=== PATIENT | female | born 1980 | race Caucasian/White ===

== ENCOUNTER 2023-09-29 14:56 | Inpatient (IN) | payer MEDICARE, MEDICAID ==
[~2023-09-29] VITALS: Ht 170.2 cm; Wt 187.3 kg
[~2023-09-29 14:56] MED LIST: ACET-2247 PO; ALBU2.5V39 NEB; AMOX1TAB15 PO; DIVA-111 PO; DOCU-385 PO; FAMO20 PO; HEPA500018 SQ; MAGN-169 PO
[2023-09-29] MEDS ORDERED: APIX2.5T PO (15:08)
[2023-09-29 18:11] LABS: BASOPHILS % (AUTO) 0.6 % (0.0-2.0); EOSINOPHILS % (AUTO) 0.3 % (1.0-6.0); HEMATOCRIT 39.3 % (36-46); HEMOGLOBIN 12.6 g/dL (12.0-16.0); LYMPHOCYTES # (AUTO) 2.3 K/uL (1.0-4.8); LYMPHOCYTES % (AUTO) 14.7 % (22.0-44.0); MEAN CORPUSCULAR HEMOGLOBIN 24.8 pg (26.0-34.0); MEAN CORPUSCULAR VOLUME 78 fL (80-100); MONOCYTES # (AUTO) 0.8 K/uL (0.1-1.0); NEUTROPHILS # (AUTO) 12.4 K/uL (1.8-7.7); NEUTROPHILS % (AUTO) 79.4 % (40.0-70.0); PLATELET COUNT (AUTO) 535 K/uL (150-450); RED BLOOD CELL COUNT(AUTO) 5.07 MIL/uL (4.00-5.20); WHITE BLOOD COUNT (AUTO) 15.6 K/uL (4.5-11.0)
[2023-09-29 18:22] LABS: ANION GAP 4 mmol/L (8-16); CALCIUM, TOTAL 9.6 mg/dL (8.8-10.5); CARBON DIOXIDE 30 mmol/L (22-29); CHLORIDE 100 mmol/L (98-107); CREATININE 0.66 mg/dL (0.60-1.30); GLOMERULAR FILTR. RATE CALC > 60 mL/min (>60); GLUCOSE,RANDOM 115 mg/dL (70-110); POTASSIUM 4.1 mmol/L (3.5-5.1); SODIUM SERUM 134 mmol/L (136-145); UREA NITROGEN, BLOOD 14 mg/dL (7-18)
[2023-09-29 18:34] LABS: ALCOHOL, BLOOD (SERUM) < 3 mg/dL (0-10)
[2023-09-29 18:38] LABS: RBC MORPHOLOGY COMMENT ABNORMAL RBC MORPH
[2023-09-29] MEDS ORDERED: ChlorproMAZINE HCL 100 MG TABLET PO PRN (18:45)
[2023-09-29] MEDS ORDERED: ZOLPIDEM TARTRATE 5 MG TABLET PO PRN (18:45)
[2023-09-29] MEDS ORDERED: LORazepam 1 MG TABLET PO PRN (18:45)
[2023-09-29 19:11] LABS: COVID AG,FIA SOURCE NASAL SWAB
[2023-09-29 19:33] LABS: SARS-COV2 (COVID) ANTIGEN,FIA Negative (Negative)
[2023-09-29] MEDS: DIVALPROEX SODIUM 500 MG ER TABLET PO SCH (20:16)
[2023-09-29] MEDS: OLANZapine 5 MG TABLET PO SCH (20:17)
[2023-09-30] MEDS ORDERED: ACETAMINOPHEN 325 MG TABLET PO PRN ×2 (09:15→17:00)
[2023-09-30] MEDS ORDERED: MAGNESIUM HYDROXIDE SUSPENSION 30 ML UDCUP PO PRN ×2 (09:15→17:00)
[2023-09-30] MEDS ORDERED: TUBERCULIN, PURIFIED PROTEIN DERIVATIVE 5 TU/0.1 ML SYRINGE ID ONE (09:15)
[2023-09-30] MEDS ORDERED: OLANZapine 5 MG RAPDIS TABLET PO PRN (09:15)
[2023-09-30] MEDS ORDERED: LOPERAMIDE HCL 2 MG CAPSULE PO PRN ×2 (09:15→17:00)
[2023-09-30] MEDS ORDERED: PROMETHAZINE HCL 25 MG TABLET PO PRN (09:15)
[2023-09-30] MEDS ORDERED: MAG HYDROX/ALUMINUM HYD/SIMETH ES 30 ML SUSPENSION UDCUP PO PRN ×2 (09:15→17:00)
[2023-09-30] MEDS ORDERED: HydrOXYzine PAMOATE 50 MG CAPSULE PO PRN (09:15)
[2023-09-30] MEDS ORDERED: GuaiFENesin/D-METHORPHAN [SUGAR-FREE] 200-20MG/10 ML SYRUP UDCUP PO PRN (09:15)
[2023-09-30 12:18] VITALS: BP 137/96; PULSE 118; RESP 16; TEMP 98
[2023-09-30] MEDS ORDERED: PETROLATUM,WHITE 28 GM JELLY TP PRN (17:00)
[2023-09-30] MEDS ORDERED: OMEPRAZOLE 20 MG CAPSULE PO PRN (17:00)
[2023-09-30] MEDS ORDERED: ALBUTEROL SULFATE HFA 90 MCG/PUFF 8 GM INHALER IH PRN (17:00)
[2023-09-30] MEDS ORDERED: ONDANSETRON HCL 4 MG TABLET PO PRN (17:00)
[2023-09-30] MEDS ORDERED: CloNIDine HCL 0.1 MG TABLET PO PRN (17:00)
[2023-09-30] MEDS ORDERED: DOCUSATE SODIUM 100 MG CAPSULE PO PRN (17:00)
[2023-09-30] MEDS ORDERED: BENZOCAINE/MENTHOL LOZENGE PO PRN (17:00)
[2023-09-30] MEDS: THIAMINE 100 MG TABLET PO SCH (17:12)
[2023-09-30 21:09] VITALS: BP 104/65; PULSE 106; RESP 18; TEMP 98; O2SAT 95
[2023-10-01 06:36] VITALS: BP 127/60; PULSE 103; RESP 18; TEMP 97.2; O2SAT 96
[2023-10-01] MEDS: IBUPROFEN 600 MG TABLET PO PRN (06:40)
[2023-10-01 07:19] LABS: BILIRUBIN,URINE NEGATIVE (NEGATIVE); COLOR,URINE LIGHT YELLOW (YELLOW); GLUCOSE, URINE (UA) NEGATIVE (NEGATIVE); KETONES,URINE NEGATIVE (NEGATIVE); LEUKOCYTE ESTERASE ,URINE MODERATE (NEGATIVE); NITRATE,URINE POSITIVE (NEGATIVE); OCCULT BLOOD,URINE NEGATIVE (NEGATIVE); PH,URINE 5.5 (5.0-8.0); PROTEIN,URINE NEGATIVE (NEGATIVE); UROBILINOGEN,URINE <=1.0 mg/dL (<=1.0)
[2023-10-01 07:22] LABS: APPEARANCE,URINE HAZY (CLEAR)
[2023-10-01 07:54] LABS: BACTERIA,URINE Many /HPF (None Seen); RBC,URINE 0-2 /HPF (0-2); SQUAMOUS EPITHELIAL CELL,UR Many /LPF (None Seen)
[2023-10-01 08:00] VITALS: BP 151/80; PULSE 98; RESP 16; TEMP 97.8; O2SAT 98
[2023-10-01 08:14] LABS: HEMOGLOBIN A1C 6.3 % (3.8-5.6)
[2023-10-01 08:27] LABS: CHOL/HDL RATIO 2.4 (3.9-5.7); FREE T4 (FREE THYROXINE) 1.44 ng/dL (0.76-1.46); THYROID STIMULATING HORMONE 1.59 uIU/mL (0.36-3.74)
[2023-10-01] MEDS: OLANZapine 5 MG TABLET PO SCH (09:00)
[2023-10-01] MEDS: FOLIC ACID 1 MG TABLET PO SCH (10:11)
[2023-10-01] MEDS: MULTIVITAMINS WITH MINERALS, THERAPEUTIC TABLET PO SCH (10:11)
[2023-10-01] MEDS: CEPHALEXIN MONOHYDRATE 500 MG CAPSULE PO SCH (10:13)
[2023-10-01] MEDS ORDERED: LURASIDONE HCL 20 MG TABLET PO PRN (11:00)
[2023-10-01] MEDS: GuanFACINE HCL 1 MG TABLET PO SCH (13:00)
[2023-10-01] MEDS: OXcarbazepine 300 MG TABLET PO SCH (17:00)
[2023-10-01] MEDS: LURASIDONE HCL 40 MG TABLET PO SCH (17:30)
[2023-10-01] MEDS: MetFORMIN HCL 500 MG TABLET PO SCH (17:49)
[2023-10-01 20:57] VITALS: RESP 18
[2023-10-02 09:25] VITALS: BP 139/89; PULSE 96; RESP 18; TEMP 98.4; O2SAT 96
[2023-10-02] MEDS: MUPIROCIN CALCIUM 2% 22 GM OINTMENT NASAL SCH (09:27)
[2023-10-02 20:14] VITALS: BP 160/89; PULSE 97; RESP 18; TEMP 97.6; O2SAT 96
[2023-10-03 10:14] VITALS: BP 110/66; PULSE 88; RESP 19; TEMP 97.9; O2SAT 98
[2023-10-03 21:24] VITALS: BP 110/62; PULSE 98; RESP 18; TEMP 98.2; O2SAT 98
[2023-10-04 10:14] VITALS: BP 135/95; PULSE 113; RESP 18; TEMP 98; O2SAT 95
[2023-10-04] MEDS: BACITRACIN 28 GM OINTMENT TP PRN (18:00)
[2023-10-04 20:53] VITALS: BP 115/63; PULSE 85; RESP 18; TEMP 97.4; O2SAT 96
[2023-10-05 09:34] VITALS: BP 128/59; PULSE 102; RESP 18; TEMP 98.5; O2SAT 99
[2023-10-05] MEDS: GuanFACINE HCL 1 MG TABLET PO SCH (13:02)
[2023-10-05 13:04] VITALS: BP 124/68; PULSE 97; RESP 0
[2023-10-05] MEDS: LURASIDONE HCL 60 MG TABLET PO SCH (18:06)
[2023-10-05 21:43] VITALS: RESP 18
[2023-10-06 09:19] VITALS: BP 129/84; PULSE 60; RESP 19; TEMP 98; O2SAT 98
[2023-10-06] MEDS: LURASIDONE HCL 80 MG TABLET PO SCH (16:57)
[2023-10-06 20:20] VITALS: BP 125/82; PULSE 66; RESP 18; TEMP 98.1; O2SAT 98
[2023-10-07 11:36] VITALS: BP 116/67; PULSE 94; RESP 18; TEMP 97.3; O2SAT 96
[2023-10-07] MEDS: LURASIDONE HCL 60 MG TABLET PO SCH (17:07)
[2023-10-07] MEDS ORDERED: LURASIDONE HCL 20 MG TABLET PO SCH (17:30)
[2023-10-07 21:00] VITALS: BP 94/53; PULSE 82; RESP 18; TEMP 97.6; O2SAT 98
[2023-10-08 08:00] VITALS: BP 121/77; PULSE 78; RESP 18; TEMP 97.9; O2SAT 97
[2023-10-08] MEDS: LURASIDONE HCL 20 MG TABLET PO SCH (18:00)
[2023-10-08 21:22] VITALS: BP 119/57; PULSE 85; RESP 19; TEMP 98; O2SAT 97
[2023-10-09 08:53] VITALS: BP 127/79; PULSE 109; RESP 18; TEMP 98.3; O2SAT 95
[2023-10-09 21:51] VITALS: BP 113/60; PULSE 75; RESP 18; TEMP 97.2; O2SAT 97
[2023-10-10] MEDS: MUPIROCIN CALCIUM 2% 22 GM OINTMENT NASAL SCH (09:44)
[2023-10-10 09:54] VITALS: BP 138/83; PULSE 112; RESP 18; TEMP 97.7; O2SAT 95
[2023-10-10 21:27] VITALS: BP 112/57; PULSE 68; RESP 18; TEMP 97.3; O2SAT 98
[2023-10-11 08:53] VITALS: BP 122/73; PULSE 71; RESP 18; TEMP 97.6; O2SAT 95
[2023-10-11 12:38] VITALS: BP 125/78
[2023-10-11 17:28] VITALS: BP 144/73; RESP 18; O2SAT 100
[2023-10-11 20:03] VITALS: BP 121/74; PULSE 74; RESP 18; TEMP 98.1; O2SAT 98
[2023-10-11 21:04] VITALS: BP 121/74; PULSE 74; RESP 18; TEMP 98.1; O2SAT 98
[2023-10-12 11:03] VITALS: BP 109/71; PULSE 99; RESP 18; TEMP 98.1; O2SAT 95
[2023-10-12] MEDS: OXcarbazepine 300 MG TABLET PO SCH (17:03)
[2023-10-12 20:47] VITALS: BP 115/73; PULSE 85; RESP 18; TEMP 98.4; O2SAT 97
[2023-10-13 08:54] VITALS: BP 130/82; PULSE 97; RESP 17; TEMP 97.2; O2SAT 100
[2023-10-13 21:42] VITALS: BP 136/77; PULSE 77; RESP 18; TEMP 98; O2SAT 96
[2023-10-14] MEDS ORDERED: LURA60TA PO (09:06)
[2023-10-14] MEDS ORDERED: GUAN1TAB2 PO (09:06)
[2023-10-14 09:44] VITALS: BP 127/78; PULSE 78; RESP 18; TEMP 98.1; O2SAT 97
[2023-10-14 20:09] VITALS: RESP 17
[2023-10-15 16:25] VITALS: BP 147/88; PULSE 94; RESP 19; TEMP 97.8; O2SAT 96
[2023-10-15 20:47] VITALS: BP 106/61; PULSE 84; RESP 18; TEMP 98; O2SAT 99
[2023-10-15 22:08] VITALS: TEMP 98
[2023-10-16 09:33] VITALS: BP 117/75; PULSE 76; RESP 18; TEMP 97.9; O2SAT 96
[2023-10-16 13:31] VITALS: BP 121/77; PULSE 90; RESP 18
== END 2023-10-16 16:30 | DRG 885 ==
LOC: EMS 14:56 → EDH 19:50 → UNDOADMIN 19:50 → 3EX 09-30 12:03
PROVIDERS: ADMIT Psychiatry & Neurology Psychiatry; ATTEND Psychiatry & Neurology Psychiatry
PROC: GZHZZZZ Group Psychotherapy (ICD-10-PCS; principal; 2023-09-29)
PROC: GZ51ZZZ Individual Psychotherapy, Behavioral (ICD-10-PCS; 2023-09-29)
DX: F25.0 Schizoaffective disorder, bipolar type (principal); G93.41 Metabolic encephalopathy; Z68.44 Body mass index [BMI] 60.0-69.9, adult; E66.9 Obesity, unspecified; F41.9 Anxiety disorder, unspecified; Z20.822 Contact with and (suspected) exposure to COVID-19; G47.00 Insomnia, unspecified; K59.00 Constipation, unspecified; R26.89 Other abnormalities of gait and mobility; Z91.199 Patient's noncompliance with other medical treatment and regimen due to unspecified reason
CPT/HCPCS: 80048; 80061; 81001; 83036; 84439; 84443; 84703; 85025; 86592; 87081; 87086; 87186; 99285; G0378; G0480; Q9967